=== PATIENT | female | born 1930 ===

== ENCOUNTER 2017-10-17 16:53 | Inpatient (IN) | payer MEDICARE, OTHER ==
[~2017-10-17] VITALS: Ht 154.9 cm; Wt 66.2 kg
--- NOTE | 2017-10-17 16:55 | NUR ---
DR ZEPEDA AT THE BEDSIDE FOR EVAL AND EXAM.
[2017-10-17 17:20] LABS: BASOPHILS % (AUTO) 0.4 % (0.0-2.0); EOSINOPHILS % (AUTO) 0.5 % (0.0-7.0); HEMATOCRIT 36.7 % (31.2-41.9); HEMOGLOBIN 12.1 g/dL (10.9-14.3); LYMPHOCYTES # (AUTO) 1.4 K/uL (20.0-40.0); LYMPHOCYTES % (AUTO) 17.3 % (20.5-51.5); MEAN CORPUSCULAR HEMOGLOBIN 26.9 uug (24.7-32.8); MEAN CORPUSCULAR HGB CONC 33 g/dL (32.3-35.6); MEAN CORPUSCULAR VOLUME 81.7 fL (75.5-95.3); MONOCYTES # (AUTO) 0.5 K/uL (2.0-10.0); MONOCYTES % (AUTO) 6.1 % (0.0-11.0); NEUTROPHILS # (AUTO) 6.2 K/uL (1.8-8.9); NEUTROPHILS % (AUTO) 75.7 % (38.5-71.5); PLATELET COUNT (AUTO) 155 K/uL (179-408); WHITE BLOOD COUNT (AUTO) 8.2 K/uL (3.8-11.8)
--- NOTE | 2017-10-17 17:20 | NUR ---
PT CURRENTLY UNABLE TO REMEMBER ALL HER MEDS BUT WILL GIVE A MED LIST LATER FROM HER FRIENDS.
[2017-10-17 17:32] LABS: ALANINE AMINOTRANSFERASE 29 U/L (14-59); ALKALINE PHOSPHATASE 74 U/L (50-136); ASPARTATE AMINOTRANSFERASE 19 U/L (15-37); BILIRUBIN,DIRECT 0.1 mg/dL (0.0-0.2); BILIRUBIN,TOTAL 0.4 mg/dL (0.2-1.0); CARBON DIOXIDE 25 mmol/L (21-32); CHLORIDE 95 mmol/L (98-107); CREATININE 0.8 mg/dL (0.6-1.3); GLUCOSE 148 mg/dL (74-106); POTASSIUM 3.9 mmol/L (3.5-5.1); TOTAL PROTEIN, SERUM 7.5 g/dL (6.4-8.2); UREA NITROGEN, BLOOD 13 mg/dL (7-18)
--- NOTE | 2017-10-17 17:50 | NUR ---
PT BACK FROM CT. RUEDA AT THE BEDSIDE.
[2017-10-17] MEDS ORDERED: MORPHINE SULFATE 4 MG/1 ML DISP.SYRIN ONE (17:55)
[2017-10-17] MEDS ORDERED: ONDANSETRON 4 MG/2 ML VIAL ONE (17:55)
[2017-10-17] MEDS ORDERED: ONDANSETRON 4 MG/2 ML VIAL IV ONE (18:00)
[2017-10-17] MEDS ORDERED: MORPHINE SULFATE 2 MG/1 ML DISP.SYRIN IV ONE ×2 (18:00→21:30)
[2017-10-17] MEDS ORDERED: LORA0.5T PO (18:04)
[2017-10-17] MEDS ORDERED: CARV25TA2 PO (18:04)
[2017-10-17] MEDS ORDERED: ASPI81TA31 PO (18:04)
[2017-10-17] MEDS ORDERED: LEVO100T10 PO (18:04)
[2017-10-17] MEDS ORDERED: SIMV20TA6 PO (18:04)
[2017-10-17] MEDS ORDERED: OMEP20CA10 PO (18:04)
[2017-10-17] MEDS ORDERED: LOSA100T15 PO (18:04)
[2017-10-17] MEDS ORDERED: FOLI1TAB16 PO (18:04)
--- NOTE | 2017-10-17 18:24 | NUR ---
BELONGING LIST COMPLETED, AND PLACED IN THE CHART. NOT CANDIDATE FOR MRSA.
[2017-10-17] MEDS ORDERED: IV 1/2NS 1000 ML 1,000 ML IV PRN (18:38)
[2017-10-17] MEDS ORDERED: ACETAMINOPHEN 325 MG TABLET PO PRN (18:45)
[2017-10-17] MEDS ORDERED: MAGNESIUM HYDROXIDE 30 ML LIQUID UDC PO PRN (18:45)
[2017-10-17] MEDS ORDERED: MORPHINE SULFATE 2 MG/1 ML DISP.SYRIN IV PRN (18:45)
[2017-10-17] MEDS ORDERED: Z GUARD REMEDY PASTE 57 GM TUBE TOP PRN (18:45)
[2017-10-17 18:52] LABS: *CLARITY,URINE CLEAR (CLEAR); *COLOR,URINE LIGHT YELLOW (YELLOW); *PROTEIN,URINE TRACE (NEGATIVE); *UROBILINOGEN,URINE 0.2 E.U./dl (NORMAL); LEUKOCYTE ESTERASE ,URINE NEGATIVE (NEGATIVE); NITRITE, URINE NEGATIVE (NEGATIVE)
[2017-10-17 18:53] LABS: *BLOOD, URINE 1+ (NEGATIVE)
[2017-10-17 18:54] LABS: *BILIRUBIN,URIN NEGATIVE (NEGATIVE); *KETONES,URINE NEGATIVE (NEGATIVE); UGLUCOSE NEGATIVE (NEGATIVE)
[2017-10-17 18:57] LABS: BACTERIA,URINE NONE SEEN /HPF (NONE SEEN); SQUAMOUS EPITHELIAL CELL,UR FEW /HPF (NONE SEEN); WBC,URINE 0-3 /HPF (0-3)
--- NOTE | 2017-10-17 19:00 | NUR ---
Admitted a 86 years old pt. AAOx4. Family at bedside. Routine admission order done, Plan of care initiated. Safety measure initiated and call sam within reach.
[2017-10-17] MEDS ORDERED: hydrALAZINE HCL 20 MG/1 ML VIAL IV STA (19:13)
[2017-10-17] MEDS ORDERED: ONDANSETRON 4 MG/2 ML VIAL IV PRN (19:15)
[2017-10-17 19:20] VITALS: BP 203/71
[2017-10-17] MEDS: ONDANSETRON 4 MG/2 ML VIAL IV PRN (19:56)
[2017-10-17 21:22] VITALS: BP 149/54
--- NOTE | 2017-10-17 21:35 | NUR ---
Pt seen by Doctor Xie today.
--- NOTE | 2017-10-17 21:39 | NUR ---
TC from Doctor Lencho Morgan and ordered for pt to be NPO after midnight, pt to have left hip neftali-arthroplasty tomorrow. Start pt on D5 1/2 NS at 100cc/hr once pt on NPO and give IV Ancef at the OR tomorrow. Also ordered Type and screening. All order read back, verified and carried out. Pt wanted to have her son Serge to sign consent form. Pt son not present at this time.
[2017-10-17] MEDS: LORAZEPAM 0.5 MG TABLET PO PRN (21:55)
--- NOTE | 2017-10-17 22:45 | NUR ---
TC to Doctor Stark and informed that pt pain still intense in spite of giving Morphine 1mg at 2022. Doctor Stark with order to give Morphine 2mg now and increase Morphine to 3mg q4hrs prn for pain. Order read back, verified and carried out. Ice compress applied to left hip area and provided O2 at 2LPM via NC for comfort.
[2017-10-18] MEDS: IV D5 1/2 NS 1000 ML 1,000 ML IV PRN ×2 (00:21→10:35)
[2017-10-18 00:40] VITALS: BP 156/52
[2017-10-18 00:54] VITALS: BP 163/63
[2017-10-18] MEDS: hydrALAZINE HCL 20 MG/1 ML VIAL IV PRN (00:58)
[2017-10-18] MEDS: ONDANSETRON 4 MG/2 ML VIAL IV PRN ×2 (01:49→20:59)
[2017-10-18] MEDS: MORPHINE SULFATE 2 MG/1 ML DISP.SYRIN IV PRN ×2 (01:49→11:04)
--- NOTE | 2017-10-18 02:00 | NUR ---
BP down to 135/54, HR 91.
[2017-10-18] MEDS: ZOLPIDEM 5 MG TABLET PO PRN (02:23)
[2017-10-18 04:00] VITALS: BP 132/48
--- NOTE | 2017-10-18 06:27 | NUR ---
AAOx4. Not in acute distress. O2 at 2LPM via nc in place. O2 sat at 99%. IV site on RFA intact and patent. IVF infusing. SR on Tele 89/min with occasional PVC and 1st degree block. Pt NPO post midnight. For Left hip neftali arthroplasty today. N/V manage with Zofran prn. Morphine 3mg q4hrs prn given for complain of pain on left hip. Ice pack on left hip area provided. DVT pump in place. Needs attended to and met. Safety measure maintained and call sam within reach.
[2017-10-18] MEDS: LEVOTHYROXINE SODIUM 100 MCG TABLET PO SCH (06:28)
[2017-10-18 06:36] LABS: HEMATOCRIT 34.5 % (31.2-41.9); HEMOGLOBIN 11.3 g/dL (10.9-14.3); LYMPHOCYTES # (AUTO) 0.7 K/uL (20.0-40.0); LYMPHOCYTES % (AUTO) 6.2 % (20.5-51.5); MEAN CORPUSCULAR HEMOGLOBIN 26.8 uug (24.7-32.8); MEAN CORPUSCULAR HGB CONC 33 g/dL (32.3-35.6); MEAN CORPUSCULAR VOLUME 81.6 fL (75.5-95.3); MONOCYTES # (AUTO) 0.5 K/uL (2.0-10.0); MONOCYTES % (AUTO) 4.6 % (0.0-11.0); NEUTROPHILS % (AUTO) 89.2 % (38.5-71.5); PLATELET COUNT (AUTO) 149 K/uL (179-408); RED BLOOD CELL COUNT(AUTO) 4.22 MIL/uL (3.63-4.92); WHITE BLOOD COUNT (AUTO) 11.2 K/uL (3.8-11.8)
[2017-10-18] MEDS ORDERED: CEFAZOLIN 1 G in PREMIXED 1 EACH IV ONE (07:00)
[2017-10-18 07:34] LABS: ALANINE AMINOTRANSFERASE 22 U/L (14-59); ALKALINE PHOSPHATASE 58 U/L (50-136); ASPARTATE AMINOTRANSFERASE 20 U/L (15-37); BILIRUBIN,TOTAL 0.5 mg/dL (0.2-1.0); CARBON DIOXIDE 25 mmol/L (21-32); CHLORIDE 94 mmol/L (98-107); CHOLESTEROL 134 mg/dL (<200); CREATININE 0.8 mg/dL (0.6-1.3); GLUCOSE 184 mg/dL (74-106); HDL CHOLESTEROL 71 mg/dL (40-60); MAGNESIUM 1.5 mg/dL (1.8-2.4); PHOSPHOROUS 4.1 mg/dL (2.5-4.9); POTASSIUM 3.6 mmol/L (3.5-5.1); TOTAL PROTEIN, SERUM 6.5 g/dL (6.4-8.2); TRIGLYCERIDES 47 MG/DL (30-150); UREA NITROGEN, BLOOD 12 mg/dL (7-18)
--- NOTE | 2017-10-18 07:45 | NUR ---
Rec'd pt in bed awake, A&Ox4. Able to make needs known. Denies pain at this time. Per pt, she is comfortable and denies needing to be repositioned. On 2L O2 via n/c, aneta well at 99% O2Sat. NPO at this time for upcoming L Hip Hemiarthroplasty. Consent signed and ready for procedure. Arroyo catheter in place and patent, draining mod amt of clear yellow urine to drainage bag. Pedal pulses present. No pedal edema noted. Will continue to monitor.
[2017-10-18] MEDS: CARVEDILOL 25 MG TABLET PO SCH ×2 (08:38→17:00)
[2017-10-18] MEDS: FOLIC ACID 1 MG TABLET PO SCH (08:38)
[2017-10-18] MEDS: LOSARTAN POTASSIUM 50 MG TABLET PO SCH (08:39)
[2017-10-18] MEDS ORDERED: ASPIRIN 81 MG TAB.CHEW PO SCH (09:00)
[2017-10-18] MEDS ORDERED: LEVOTHYROXINE SODIUM 100 MCG TABLET PO SCH (09:00)
[2017-10-18] MEDS ORDERED: Medication Not On Formulary EA (Losartan Potassium 1 TAB) PO SCH (09:00)
[2017-10-18] MEDS: MAGNESIUM SULFATE/D5W 100 ML IV SCH ×2 (10:34→11:57)
[2017-10-18] MEDS ORDERED: POTASSIUM CHLORIDE 10 MEQ in IV D5/ 0.9% NACL 1,000 ML IV PRN (11:00)
[2017-10-18] MEDS ORDERED: MORPHINE SULFATE 2 MG/1 ML DISP.SYRIN IV PRN (11:30)
[2017-10-18 11:44] VITALS: BP 118/42
[2017-10-18 12:36] LABS: *BILIRUBIN,URIN NEGATIVE (NEGATIVE); *BLOOD, URINE 3+ (NEGATIVE); *CLARITY,URINE CLOUDY (CLEAR); *COLOR,URINE YELLOW (YELLOW); *KETONES,URINE NEGATIVE (NEGATIVE); *UROBILINOGEN,URINE 0.2 E.U./dl (NORMAL); LEUKOCYTE ESTERASE ,URINE 3+ (NEGATIVE); NITRITE, URINE POSITIVE (NEGATIVE); PH,URINE 8.5 (5.0-8.0); UGLUCOSE NEGATIVE (NEGATIVE)
[2017-10-18 12:48] LABS: *CREATININE,URINE 166.9 mg/dL (30-125); *URINE TOTAL PROTEIN RANDOM 128.9 mg/dL (<150/24HR)
[2017-10-18 12:59] LABS: *PROTEIN,URINE 3+ (NEGATIVE)
[2017-10-18 13:04] LABS: BACTERIA,URINE MANY /HPF (NONE SEEN); SQUAMOUS EPITHELIAL CELL,UR FEW /HPF (NONE SEEN)
--- NOTE | 2017-10-18 14:15 | NUR ---
Pt asleep at this time. No s/s of acute distress noted. Continue to be SR on Tele 79/min with occasional 1st degree HB. Continues to be NPO for upcoming surgery. Will continue to monitor.
[2017-10-18] MEDS ORDERED: VECURONIUM BROMIDE 10 MG VIAL IV ONE (14:29)
[2017-10-18] MEDS ORDERED: ONDANSETRON 4 MG/2 ML VIAL IV ONE (14:29)
[2017-10-18] MEDS ORDERED: LIDOCAINE HCL 1% 20 ML VIAL MC ONE (14:29)
[2017-10-18] MEDS ORDERED: SEVOFLURANE 250 ML BOTTLE IH ONE (14:29)
[2017-10-18] MEDS ORDERED: CEFAZOLIN 1 G VIAL MC ONE (14:29)
[2017-10-18] MEDS ORDERED: EPHEDRINE SULFATE 50 MG/ML AMPUL MC ONE (14:29)
[2017-10-18] MEDS ORDERED: ETOMIDATE 20 MG/10 ML VIAL MC ONE (14:29)
[2017-10-18] MEDS ORDERED: IV NORMAL SALINE 1000 ML BAG IV ONE (14:29)
[2017-10-18] MEDS ORDERED: DEXAMETHASONE SOD PHOSPHATE 4 MG INJ IV ONE (14:29)
[2017-10-18] MEDS ORDERED: POLYMYXIN B SULFATE 500,000 UNITS, BACITRACIN 50,000 UNITS, NORMAL SALINE 20 ML MC ONE ×3 (15:30)
[2017-10-18 15:40] VITALS: BP 136/46
--- NOTE | 2017-10-18 16:30 | NUR ---
Patient signed consent for blood transfusion for OR procedure. Family at bedside.
--- NOTE | 2017-10-18 16:40 | NUR ---
Pt left for L Hip Hemiarthroplasty surgery via hospital bed accompanied by x2 OR cardiac/vascular sonographer and her family. Pt A&Ox4. No s/s of acute distress noted. All consents for surgery and blood transfusion (possible) signed by pt and her son per her request.
[2017-10-18] MEDS ORDERED: FENTANYL CITRATE 100 MCG/2 ML AMPUL ONE (19:18)
--- NOTE | 2017-10-18 19:30 | NUR ---
PT DOWN IN OR AT THIS TIME. SHIFT REPORT COMPLETED FROM DAY SHIFT NURSE.
--- NOTE | 2017-10-18 20:45 | NUR ---
PT ARRIVED BACK FROM OR IN TELEMETRY UNIT. SINUS RHYTHM NOTED. PT C/O SLIGHT NAUSEA BUT NO VOMITING PRESENT. ABLE TO FOLLOW SIMPLE COMMANDS. PT TO START ON IV FLUIDS NS @100ML/HR. FAMILY AT BEDSIDE. ICE PACK APPLIED TO SURGICAL SITE. NO ACTIVE BLEEDING OR DRAINAGE NOTED TO LEFT HIP. PEDAL PULSE REGULAR AND STRONG. DENIES ANY PAIN, NUMBNESS, OR TINGLING TO EXTREMITIES. CONTINUE TO MONITOR. CALL LIGHT WITHIN REACH. MAINTAINING OXYGEN AT 2L/MIN VIA N/C.
[2017-10-18 20:47] VITALS: BP 153/57
[2017-10-18] MEDS: IV NS 1000 ML 1,000 ML IV PRN (21:21)
[2017-10-18] MEDS: SIMVASTATIN 20 MG TABLET PO SCH (21:39)
[2017-10-19] VITALS: BP 168/67
[2017-10-19] MEDS: hydrALAZINE HCL 20 MG/1 ML VIAL IV PRN (00:49)
[2017-10-19] MEDS: CEFAZOLIN 1 G in PREMIXED 1 EACH IV SCH ×2 (00:49→08:21)
--- NOTE | 2017-10-19 01:00 | NUR ---
PT IN ROOM ASLEEP WITH NO FURTHER C/O NAUSEA SINCE ADMINISTERING OF ZOFRAN IV. ABLE TO TAKE SIPS OF FLUIDS WITH VANILLA PUDDING. BP NOTED 168/67. SCREEN OPERATOR HR SINUS RHYTHM 81. HYDRALAZINE IV ON HAND. DENIES ANY PAIN OR HEADACHES. ICE BAG APPLIED TO SURGICAL SITE ON LEFT HIP. CONTINUE TO MONITOR.
[2017-10-19 04:00] VITALS: BP 129/43
[2017-10-19] MEDS: HYDROCODONE/APAP 5-325MG TABLET PO PRN ×4 (04:01→18:27)
[2017-10-19] MEDS: IV NS 1000 ML 1,000 ML IV PRN ×2 (04:37→22:26)
--- NOTE | 2017-10-19 06:00 | NUR ---
PT IN ROOM ALERT AWAKE IN NO ACUTE DISTRESS. STATES RECENT NORCO MEDICATION WAS HELPFUL IN RELIEVING PAIN TO LEFT HIP. NO DRAINAGE OR ACTIVE BLEEDING NOTED TO AFFECTED SITE. PT MAINTAINING IV FLUIDS NS AT 100CC/HR. ABLE TO EAT SNACK WITH SIPS OF FLUIDS WITHOUT C/O NAUSEA. V/S ARE WNL. SKIN WARM TO TOUCH WITH NO FEVER OR CHILLS. ICE BAG APPLIED TO LEFT HIP. NO NUMBNESS OR TINGLING NOTED TO EXTREMITIES. CONTINUE TO MONITOR. CALL LIGHT WITHIN REACH. ON CONTINUOUS OXYGEN THERAPY AT 2L/MIN VIA N/C. F/C INTACT VOIDING WELL.
[2017-10-19] MEDS: LEVOTHYROXINE SODIUM 100 MCG TABLET PO SCH (06:04)
[2017-10-19 06:29] LABS: BASOPHILS % (AUTO) 0.1 % (0.0-2.0); HEMATOCRIT 27.9 % (31.2-41.9); HEMOGLOBIN 9.1 g/dL (10.9-14.3); LYMPHOCYTES # (AUTO) 0.4 K/uL (20.0-40.0); LYMPHOCYTES % (AUTO) 3.9 % (20.5-51.5); MEAN CORPUSCULAR HEMOGLOBIN 26.9 uug (24.7-32.8); MEAN CORPUSCULAR HGB CONC 33 g/dL (32.3-35.6); MEAN CORPUSCULAR VOLUME 82.1 fL (75.5-95.3); MONOCYTES # (AUTO) 0.8 K/uL (2.0-10.0); MONOCYTES % (AUTO) 6.6 % (0.0-11.0); NEUTROPHILS # (AUTO) 10.3 K/uL (1.8-8.9); NEUTROPHILS % (AUTO) 89.4 % (38.5-71.5); PLATELET COUNT (AUTO) 130 K/uL (179-408); WHITE BLOOD COUNT (AUTO) 11.5 K/uL (3.8-11.8)
[2017-10-19 07:02] LABS: ALANINE AMINOTRANSFERASE 21 U/L (14-59); ALKALINE PHOSPHATASE 44 U/L (50-136); ASPARTATE AMINOTRANSFERASE 14 U/L (15-37); BILIRUBIN,TOTAL 0.4 mg/dL (0.2-1.0); CARBON DIOXIDE 24 mmol/L (21-32); CHLORIDE 99 mmol/L (98-107); CREATININE 0.8 mg/dL (0.6-1.3); GLUCOSE 126 mg/dL (74-106); MAGNESIUM 1.9 mg/dL (1.8-2.4); PHOSPHOROUS 3.4 mg/dL (2.5-4.9); POTASSIUM 3.9 mmol/L (3.5-5.1); TOTAL PROTEIN, SERUM 5.6 g/dL (6.4-8.2); UREA NITROGEN, BLOOD 12 mg/dL (7-18)
[2017-10-19] MEDS: FOLIC ACID 1 MG TABLET PO SCH (08:13)
[2017-10-19] MEDS: ASPIRIN 325 MG TABLET PO SCH ×2 (08:13→17:00)
[2017-10-19] MEDS: LOSARTAN POTASSIUM 50 MG TABLET PO SCH (08:21)
[2017-10-19] MEDS: CARVEDILOL 25 MG TABLET PO SCH ×2 (08:21→17:49)
[2017-10-19] MEDS ORDERED: CLONIDINE HCL 0.1 MG TABLET PO PRN (11:15)
[2017-10-19 11:29] VITALS: BP 107/42
[2017-10-19] MEDS: CEFTRIAXONE 1 G in IV DEXTROSE 5% 50 ML IV SCH (12:42)
[2017-10-19 15:29] VITALS: BP 108/48
--- NOTE | 2017-10-19 18:37 | NUR ---
PT SHOWS NO SIGNS OF RESPIRATORY DISTRESS, RESTING IN BED, CALM, COOPERATIVE AOX4. CONTINUE TO MONITOR. TELE D/C.
[2017-10-19 20:00] VITALS: BP 118/36
[2017-10-19] MEDS: ZOLPIDEM 5 MG TABLET PO PRN (20:36)
[2017-10-19] MEDS: SIMVASTATIN 20 MG TABLET PO SCH (20:36)
[2017-10-19] MEDS: PHENAZOPYRIDINE HCL 100 MG TABLET PO SCH (21:18)
[2017-10-20] MEDS: HYDROCODONE/APAP 5-325MG TABLET PO PRN ×4 (00:25→19:23)
[2017-10-20 04:36] VITALS: BP 138/44
--- NOTE | 2017-10-20 05:36 | NUR ---
Pt slept well last night. Administered Ambien upon patient request. One episode of waking up in the middle of the night yelling for help and not knowing where she was or what happened. Attempted to get out of bed. Reoriented patient, assisted back into bed and reminded to keep wedge pillow on. Reminded to use call light for assistance. PRN [place] administered for pain and effective. Bed alarm on, locked in low position, call light within reach.
[2017-10-20] MEDS: LEVOTHYROXINE SODIUM 100 MCG TABLET PO SCH (06:09)
[2017-10-20] MEDS: PHENAZOPYRIDINE HCL 100 MG TABLET PO SCH (06:09)
--- NOTE | 2017-10-20 06:15 | NUR ---
Removed Arroyo catheter. Patient states relief from urinary pain/burning symptoms after starting Pyridium last night. Urine output is red/orange as expected. Continues with wedge pillow, reminded patient to increase fluid intake and try to void now that Arroyo catheter has been removed.
[2017-10-20 07:12] LABS: BASOPHILS % (AUTO) 0.1 % (0.0-2.0); EOSINOPHILS % (AUTO) 0.1 % (0.0-7.0); LYMPHOCYTES % (AUTO) 10.3 % (20.5-51.5); MEAN CORPUSCULAR HEMOGLOBIN 27.3 uug (24.7-32.8); MEAN CORPUSCULAR HGB CONC 33 g/dL (32.3-35.6); MEAN CORPUSCULAR VOLUME 82.3 fL (75.5-95.3); MONOCYTES # (AUTO) 0.9 K/uL (2.0-10.0); MONOCYTES % (AUTO) 9.4 % (0.0-11.0); NEUTROPHILS # (AUTO) 7.7 K/uL (1.8-8.9); NEUTROPHILS % (AUTO) 80.1 % (38.5-71.5); PLATELET COUNT (AUTO) 99 K/uL (179-408); RED BLOOD CELL COUNT(AUTO) 3.03 MIL/uL (3.63-4.92); WHITE BLOOD COUNT (AUTO) 9.6 K/uL (3.8-11.8)
[2017-10-20 07:27] LABS: HEMATOCRIT 24.9 % (31.2-41.9); HEMOGLOBIN 8.3 g/dL (10.9-14.3)
[2017-10-20 07:36] LABS: ALANINE AMINOTRANSFERASE 16 U/L (14-59); ALKALINE PHOSPHATASE 45 U/L (50-136); ASPARTATE AMINOTRANSFERASE 11 U/L (15-37); BILIRUBIN,TOTAL 0.5 mg/dL (0.2-1.0); CARBON DIOXIDE 25 mmol/L (21-32); CHLORIDE 100 mmol/L (98-107); CREATININE 0.8 mg/dL (0.6-1.3); GLUCOSE 105 mg/dL (74-106); MAGNESIUM 1.8 mg/dL (1.8-2.4); PHOSPHOROUS 2.7 mg/dL (2.5-4.9); POTASSIUM 3.7 mmol/L (3.5-5.1); TOTAL PROTEIN, SERUM 5.7 g/dL (6.4-8.2); UREA NITROGEN, BLOOD 17 mg/dL (7-18)
[2017-10-20] MEDS: ASPIRIN 325 MG TABLET PO SCH (08:08)
[2017-10-20] MEDS: FOLIC ACID 1 MG TABLET PO SCH (08:08)
[2017-10-20] MEDS: LOSARTAN POTASSIUM 50 MG TABLET PO SCH (08:10)
[2017-10-20] MEDS: CARVEDILOL 25 MG TABLET PO SCH ×2 (08:11→16:42)
[2017-10-20] MEDS: CEFTRIAXONE 1 G in IV DEXTROSE 5% 50 ML IV SCH (08:14)
[2017-10-20 09:03] LABS: BAND % (MANUAL) 2 % (0-10); LYMPHOCYTES % (MANUAL) 7 % (20-40); MONOCYTES % (MANUAL) 10 % (2-10); NEUTROPHILS % (MANUAL) 81 % (42-75)
[2017-10-20] MEDS: IV NS 1000 ML 1,000 ML IV PRN ×2 (10:37→23:12)
[2017-10-20 11:06] VITALS: BP 115/39
[2017-10-20] MEDS: CALCIUM CARBONATE 500 MG TABLET PO SCH ×2 (11:28→20:30)
[2017-10-20 11:31] VITALS: BP 146/61
[2017-10-20] MEDS ORDERED: MAGNESIUM HYDROXIDE 30 ML LIQUID UDC PO PRN (12:00)
[2017-10-20] MEDS ORDERED: MAGNESIUM HYDROXIDE 30 ML LIQUID UDC PO ONE (12:00)
[2017-10-20] MEDS: DOCUSATE SODIUM 100 MG CAPSULE PO SCH ×2 (12:16→20:30)
[2017-10-20] MEDS: ONDANSETRON 4 MG/2 ML VIAL IV PRN (12:32)
--- NOTE | 2017-10-20 12:39 | NUR ---
Pt C/O HEADACHE, NAUSEA, AND WEAKNESS. VITALS 112/35, PLASTIC BATTERY ASSEMBLER NOTIFIED. PT GIVEN ZOFRAN, AND PT REFUSED TYLENOL STATING " I DON'T WANT TYLENOL I'M OK" PAIN 6/10 FOR HEADACHE. CONTINUE TO MONITOR PT.
[2017-10-20 15:06] VITALS: BP 112/41
[2017-10-20 15:33] LABS: IRON, SERUM 12 ug/dL (50-175)
--- NOTE | 2017-10-20 19:02 | NUR ---
PT OBSERVED RESTING IN BED, ABDUCTOR PILLOW IN PLACE, NO SIGNS OF RESPIRATORY DISTRESS. NO C/O OF PAIN AT THIS TIME. PT WORKED WITH PHYSICAL THERAPY TODAY. PT HAS POOR APPETITE, NOT EATING MEALS. IV INTACT. BED AT LOWEST LOCKED POSITION. CONTINUE TO MONITOR PT.
[2017-10-20 20:00] VITALS: BP 121/39
--- NOTE | 2017-10-20 20:00 | NUR ---
RECEIVED PATIENT AWAKE IN BED. PATIENT IS A/O X3, IRISH SPEAKING BUT ABLE TO MAKE NEEDS KNOWN. PATIENT PREVIOUSLY MEDICATED WITH NORCO FOR PAIN. IVF INFUSING WELL TO RIGHT FA #22 GAUGE. ABDUCTION PILLOW IN PLACE. VS WNL. DRESSING NOTED TO LEFT HIP, CLEAN, DRY AND INTACT. ON O2 2L NC SATING WELL. NO RESP. DISTRESS NOTED. BED ALARM ON. CALL LIGHT IN REACH. ALL NEEDS ATTENDED. WILL CONTINUE TO MONITOR.
[2017-10-20] MEDS: SIMVASTATIN 20 MG TABLET PO SCH (20:30)
[2017-10-20] MEDS: LORAZEPAM 0.5 MG TABLET PO PRN (20:30)
--- NOTE | 2017-10-20 20:30 | NUR ---
PATIENT AWAKE IN BED, VERY ANXIOUS. PATIENT GIVEN ATIVAN 0.5MG PO PRN FOR ANXIETY. WILL CONTINUE TO MONITOR AND ASSESS.
--- NOTE | 2017-10-20 22:00 | NUR ---
PATIENT ASLEEP IN BED. CONTINUED ON O2 2L NC. BED ALARM ON. ALL NEEDS ATTENDED. WILL CONTINUE TO MONITOR.
[2017-10-21 04:45] VITALS: BP 140/43
--- NOTE | 2017-10-21 05:13 | NUR ---
PATIENT AWAKE IN BED. SLEPT WELL THROUGHOUT THE NIGHT, BUT PATIENT COMPLAINING THAT SHE DID NOT SLEEP ALL NIGHT. INFORMED PATIENT THAT SHE WAS FREQUENTLY CHECKED ON THROUGHOUT THE NIGHT AND WAS SNORING IN DEEP SLEEP. PATIENT APPEARS IRRITABLE. WHEN ASKED IF PAIN IS PRESENT, PATIENT DENIES. ATTEMPTED TO MAKE PATIENT COMFORTABLE, BUT PATIENT KEEPS COMPLAINING AND UNABLE TO MAKE PATIENT COMFORTABLE AT THIS TIME. WILL CONTINUE TO MONITOR. CALL LIGHT IN REACH. ALL NEEDS ATTENDED.
[2017-10-21] MEDS: LEVOTHYROXINE SODIUM 100 MCG TABLET PO SCH (06:14)
--- NOTE | 2017-10-21 06:54 | NUR ---
PATIENT IV HEPLOCK INFILTRATED. UNABLE TO RESTART AT THIS TIME. WILL ENDORSE TO DAYSHIFT. ALL NEEDS ATTENDED.
[2017-10-21 06:57] LABS: ALANINE AMINOTRANSFERASE 26 U/L (14-59); ALKALINE PHOSPHATASE 58 U/L (50-136); ASPARTATE AMINOTRANSFERASE 17 U/L (15-37); BILIRUBIN,TOTAL 0.4 mg/dL (0.2-1.0); CARBON DIOXIDE 23 mmol/L (21-32); CHLORIDE 99 mmol/L (98-107); CREATININE 0.7 mg/dL (0.6-1.3); GLUCOSE 114 mg/dL (74-106); MAGNESIUM 2.1 mg/dL (1.8-2.4); PHOSPHOROUS 2.3 mg/dL (2.5-4.9); POTASSIUM 4.4 mmol/L (3.5-5.1); TOTAL PROTEIN, SERUM 5.8 g/dL (6.4-8.2); UREA NITROGEN, BLOOD 17 mg/dL (7-18)
[2017-10-21 07:04] LABS: BASOPHILS % (AUTO) 0.1 % (0.0-2.0); EOSINOPHILS % (AUTO) 0.1 % (0.0-7.0); HEMOGLOBIN 7.9 g/dL (10.9-14.3); LYMPHOCYTES # (AUTO) 0.6 K/uL (20.0-40.0); LYMPHOCYTES % (AUTO) 8.3 % (20.5-51.5); MEAN CORPUSCULAR HEMOGLOBIN 26.9 uug (24.7-32.8); MEAN CORPUSCULAR HGB CONC 33 g/dL (32.3-35.6); MONOCYTES # (AUTO) 0.6 K/uL (2.0-10.0); MONOCYTES % (AUTO) 8.3 % (0.0-11.0); NEUTROPHILS # (AUTO) 6.4 K/uL (1.8-8.9); NEUTROPHILS % (AUTO) 83.2 % (38.5-71.5); PLATELET COUNT (AUTO) 94 K/uL (179-408); RED BLOOD CELL COUNT(AUTO) 2.93 MIL/uL (3.63-4.92); WHITE BLOOD COUNT (AUTO) 7.7 K/uL (3.8-11.8)
--- NOTE | 2017-10-21 07:10 | NUR ---
received report from mine shifter nurse, patient in bed awake, no evidence of distress noted at this time, bed in low position, side rails up x2. bed alarm on.
[2017-10-21] MEDS: HYDROCODONE/APAP 5-325MG TABLET PO PRN (08:17)
[2017-10-21] MEDS: CALCIUM CARBONATE 500 MG TABLET PO SCH ×2 (08:18→20:19)
[2017-10-21] MEDS: FOLIC ACID 1 MG TABLET PO SCH (08:18)
[2017-10-21] MEDS: DOCUSATE SODIUM 100 MG CAPSULE PO SCH ×2 (08:18→20:20)
[2017-10-21] MEDS: CARVEDILOL 25 MG TABLET PO SCH ×2 (08:20→18:00)
[2017-10-21] MEDS: LOSARTAN POTASSIUM 50 MG TABLET PO SCH (08:21)
[2017-10-21 08:51] LABS: BAND % (MANUAL) 5 % (0-10); LYMPHOCYTES % (MANUAL) 7 % (20-40); MONOCYTES % (MANUAL) 9 % (2-10); NEUTROPHILS % (MANUAL) 79 % (42-75)
[2017-10-21] MEDS ORDERED: NEUTRA PHOS PACKET PO ONE (11:00)
[2017-10-21] MEDS ORDERED: BISACODYL 10 MG SUPP.RECT RC PRN (11:00)
[2017-10-21] MEDS ORDERED: MAGNESIUM HYDROXIDE 30 ML LIQUID UDC PO ONE (11:00)
[2017-10-21] MEDS ORDERED: BISACODYL 10 MG SUPP.RECT RC ONE (11:00)
[2017-10-21] MEDS: FERROUS SULFATE 325 MG TABEC PO SCH ×2 (11:33→20:20)
[2017-10-21 12:07] VITALS: BP 140/44
[2017-10-21 13:32] LABS: *OCCULT BLOOD STOOL NEGATIVE (NEGATIVE)
[2017-10-21] MEDS ORDERED: CEPHALEXIN MONOHYDRATE 500 MG CAPSULE PO SCH (14:00)
[2017-10-21 15:12] VITALS: BP 134/38
[2017-10-21] MEDS: IV NS 1000 ML 1,000 ML IV PRN (18:00)
--- NOTE | 2017-10-21 18:37 | NUR ---
Patient has been cooperative with care, reported some pain in left hip. IV started on right forearm. Blood being prepared in blood bank. Patient has had 3 bowel movements today with laxative assistance. Currently patient in bed awake, no distress noted, bed in low position, side rails upx 2.
--- NOTE | 2017-10-21 20:01 | NUR ---
PT OBSERVED TO BE SITTING UP IN BED AND MADE AWARE OF BLOOD TRANSFUSION ORDER. NO S/S OF DISTRESS NOTED AT THIS TIME. ABDUCTOR PILLOW OBSERVED TO BE IN PLACE. SAFETY MEASURES PROVIDED. WILL CONTINUE TO MONITOR.
[2017-10-21] MEDS: LORAZEPAM 0.5 MG TABLET PO PRN (20:19)
[2017-10-21] MEDS: SIMVASTATIN 20 MG TABLET PO SCH (20:20)
[2017-10-21 22:41] VITALS: BP 156/46
[2017-10-21 23:15] VITALS: BP 159/59
[2017-10-21 23:30] VITALS: BP 152/50
--- NOTE | 2017-10-21 23:30 | NUR ---
BLOOD TRANSFUSION INITIATED. AT THIS TIME NO S/S OF HEMOLYTIC/ANAPHYLACTIC REACTIONS NOTED. VITAL SIGNS WNL. WILL CONTINUE TO MONITOR.
[2017-10-22] VITALS: BP 159/52
[2017-10-22 00:30] VITALS: BP 159/49
[2017-10-22] MEDS: hydrALAZINE HCL 20 MG/1 ML VIAL IV PRN (00:36)
[2017-10-22] MEDS ORDERED: MORPHINE SULFATE 4 MG/1 ML DISP.SYRIN ONE (00:52)
[2017-10-22 01:18] VITALS: BP 123/37
[2017-10-22 02:00] VITALS: BP 115/36
--- NOTE | 2017-10-22 02:06 | NUR ---
BLOOD ORDER TRANSFUSED.DURING TRANSFUSION, ELEVATED BP MONITORED AND CONTROLLED WITH IV HYDRALAZINE PRN ORDERED. PT C/O PAIN AND GENERALIZED DISCOMFORT - PAIN MANAGEMENT PROVIDED WITH REPOSITIONING AND IV MORPHINE PRN ORDERED. NO DISTRESS NOTED AT THIS TIME. PT IS OBSERVED TO BE RESTING COMFORTABLY IN BED. CALL LIGHT WITHIN REACH.
[2017-10-22] MEDS: IV NS 1000 ML 1,000 ML IV PRN (02:32)
[2017-10-22 05:24] VITALS: BP 130/42
--- NOTE | 2017-10-22 05:33 | NUR ---
PT NOTED TO BE RESTING IN BED AT THIS TIME. PT CLEANED, REPOSITIONED AND MADE COMFORTABLE. NO S/S OF DISTRESS NOTED AT THIS TIME. BED IN LOW, LOCKED POSITION. BED ALARM ON. CALL LIGHT WITHIN REACH.
[2017-10-22] MEDS: LEVOTHYROXINE SODIUM 100 MCG TABLET PO SCH (06:11)
[2017-10-22 06:19] LABS: BASOPHILS % (AUTO) 0.1 % (0.0-2.0); EOSINOPHILS % (AUTO) 0.2 % (0.0-7.0); LYMPHOCYTES # (AUTO) 0.7 K/uL (20.0-40.0); LYMPHOCYTES % (AUTO) 7.7 % (20.5-51.5); MEAN CORPUSCULAR HEMOGLOBIN 27.1 uug (24.7-32.8); MEAN CORPUSCULAR HGB CONC 33 g/dL (32.3-35.6); MEAN CORPUSCULAR VOLUME 83.2 fL (75.5-95.3); MONOCYTES # (AUTO) 0.7 K/uL (2.0-10.0); MONOCYTES % (AUTO) 7.6 % (0.0-11.0); NEUTROPHILS # (AUTO) 7.6 K/uL (1.8-8.9); NEUTROPHILS % (AUTO) 84.4 % (38.5-71.5); PLATELET COUNT (AUTO) 123 K/uL (179-408); RED BLOOD CELL COUNT(AUTO) 3.33 MIL/uL (3.63-4.92)
[2017-10-22 06:33] LABS: HEMATOCRIT 27.8 % (31.2-41.9)
[2017-10-22 06:43] LABS: ALANINE AMINOTRANSFERASE 25 U/L (14-59); ALKALINE PHOSPHATASE 70 U/L (50-136); ASPARTATE AMINOTRANSFERASE 20 U/L (15-37); BILIRUBIN,TOTAL 0.5 mg/dL (0.2-1.0); CARBON DIOXIDE 23 mmol/L (21-32); CHLORIDE 99 mmol/L (98-107); CREATININE 0.7 mg/dL (0.6-1.3); GLUCOSE 131 mg/dL (74-106); PHOSPHOROUS 2.1 mg/dL (2.5-4.9); POTASSIUM 4.4 mmol/L (3.5-5.1); TOTAL PROTEIN, SERUM 5.9 g/dL (6.4-8.2); UREA NITROGEN, BLOOD 17 mg/dL (7-18)
--- NOTE | 2017-10-22 07:20 | NUR ---
received report from help desk technician nurse, patient in bed asleep, no distress noted at this time, bed in low position, side rails upx 2.
[2017-10-22] MEDS: FERROUS SULFATE 325 MG TABEC PO SCH (08:25)
[2017-10-22] MEDS: FOLIC ACID 1 MG TABLET PO SCH (08:25)
[2017-10-22] MEDS: DOCUSATE SODIUM 100 MG CAPSULE PO SCH (08:25)
[2017-10-22] MEDS: CALCIUM CARBONATE 500 MG TABLET PO SCH (08:25)
[2017-10-22] MEDS: CARVEDILOL 25 MG TABLET PO SCH (08:28)
[2017-10-22] MEDS ORDERED: ONDANSETRON 4 MG/2 ML VIAL ONE (09:38)
[2017-10-22] MEDS: ONDANSETRON 4 MG/2 ML VIAL IV PRN (09:39)
[2017-10-22] MEDS ORDERED: NEUTRA PHOS PACKET PO ONE (10:45)
[2017-10-22] MEDS ORDERED: CALCIUM CARBONATE 500 MG TAB.CHEW PO PRN (11:00)
[2017-10-22 11:40] VITALS: BP 139/47
[2017-10-22] MEDS ORDERED: HYDR-3326 PO (11:51)
[2017-10-22] MEDS ORDERED: SIMV20TA6 PO (11:51)
[2017-10-22] MEDS ORDERED: ACET325T53 PO (11:51)
[2017-10-22] MEDS ORDERED: LORA0.5T48 PO (11:51)
[2017-10-22] MEDS ORDERED: ZOLP5TAB8 PO (11:51)
[2017-10-22] MEDS ORDERED: CARV25TA2 PO (11:51)
[2017-10-22] MEDS ORDERED: CALC500T63 PO (11:51)
[2017-10-22] MEDS ORDERED: DOCU100C36 PO (11:51)
[2017-10-22] MEDS ORDERED: MAGN400O6 PO (11:51)
[2017-10-22] MEDS ORDERED: FERR325T28 PO (11:51)
[2017-10-22] MEDS ORDERED: LEVO100T10 PO (11:51)
[2017-10-22] MEDS ORDERED: FOLI1TAB16 PO (11:51)
--- NOTE | 2017-10-22 14:06 | NUR ---
patient was given discharge instructions, IV removed, and report called to [facility]. Dr. Stevens instructed to change dressing before departure to facility.
--- NOTE | 2017-10-22 14:20 | NUR ---
Patient taken by ambulance.
== END 2017-10-22 14:30 | DRG 470 ==
LOC: ER 16:53 → MED 18:37 → TELE 23:58 → MED 10-19 15:57
PROVIDERS: ADMIT Internal Medicine; ATTEND Internal Medicine
PROC: 0SRS01A Replacement of Left Hip Joint, Femoral Surface with Metal Synthetic Substitute, Uncemented, Open Approach (ICD-10-PCS; principal; 2017-10-18 16:54)
PROC: 30233N1 Transfusion of Nonautologous Red Blood Cells into Peripheral Vein, Percutaneous Approach (ICD-10-PCS; 2017-10-21)
DX: S72.002A Fracture of unspecified part of neck of left femur, initial encounter for closed fracture (principal); D61.818 Other pancytopenia; E22.2 Syndrome of inappropriate secretion of antidiuretic hormone; E44.0 Moderate protein-calorie malnutrition; N39.0 Urinary tract infection, site not specified; D62 Acute posthemorrhagic anemia; Z90.12 Acquired absence of left breast and nipple; Z95.1 Presence of aortocoronary bypass graft; I08.1 Rheumatic disorders of both mitral and tricuspid valves; I97.2 Postmastectomy lymphedema syndrome; Z85.3 Personal history of malignant neoplasm of breast; Z92.3 Personal history of irradiation; W01.0XXA Fall on same level from slipping, tripping and stumbling without subsequent striking against object, initial encounter; Y92.019 Unspecified place in single-family (private) house as the place of occurrence of the external cause; Z68.27 Body mass index [BMI] 27.0-27.9, adult; E78.5 Hyperlipidemia, unspecified; I25.10 Atherosclerotic heart disease of native coronary artery without angina pectoris; E89.0 Postprocedural hypothyroidism; I44.0 Atrioventricular block, first degree; Z79.82 Long term (current) use of aspirin; T43.505A Adverse effect of unspecified antipsychotics and neuroleptics, initial encounter; Y92.009 Unspecified place in unspecified non-institutional (private) residence as the place of occurrence of the external cause; I70.0 Atherosclerosis of aorta; K59.00 Constipation, unspecified; Z95.3 Presence of xenogenic heart valve; E83.51 Hypocalcemia; E83.42 Hypomagnesemia; E83.39 Other disorders of phosphorus metabolism; I11.9 Hypertensive heart disease without heart failure
CPT/HCPCS: 36415; 70030-TC; 70450; 71045; 72170; 73502; 73503; 82746; 83550; 83735; 84100; 84156; 84300; 84443; 85025; 85610; 85730; 86850; 86900; 86901; 86920; 87086; 93005; 93307; 97110; 97116; 97165; 97530; A4649; A4663; J0360; J0690; J0696; J1100; J2270; J2405; J3010; J3475; J3480; J3490; J7030; J7042; J7050; J7060; P9016-BL; P9021